=== PATIENT | male | born 2000 | race Caucasian/White ===

== ENCOUNTER 2022-01-17 21:06 | Emergency (ER) | payer OTHER, MEDICAID, SELFPAY ==
[2022-01-17 21:42] VITALS: BP 154/91; PULSE 80; RESP 20; TEMP 36.9; O2SAT 100
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
[2022-01-17] MEDS: ONDANSETRON INJ 4 MG/2 ML VIAL IV PUSH (22:36)
[2022-01-17] MEDS: MORPHINE SULFATE (*CRX) 4 MG/ML INJ IV PUSH (22:39)
[2022-01-18] MEDS: BACITRACIN OINTMENT 15 GM TUBE 1 APPLIC TOPICAL (00:27)
[2022-01-18] MEDS: HYDROcodone/acetaminophen (*CRX) 5-325 MG TABLET 1 TAB PO (01:03)
== END 2022-01-18 01:04 | disposition home or self-care (01) ==
PROVIDERS: Emergency Provider Emergency Medicine
DX: T22.221A Burn of second degree of right elbow, initial encounter (principal); T23.271A Burn of second degree of right wrist, initial encounter; T31.0 Burns involving less than 10% of body surface; F17.290 Nicotine dependence, other tobacco product, uncomplicated; X10.2XXA Contact with fats and cooking oils, initial encounter; Y93.G3 Activity, cooking and baking
CPT/HCPCS: 16020; 96374; 96375; 99284; A9270; J2270; J2405